=== PATIENT | female | born 1980 | race Caucasian/White ===

== ENCOUNTER 2020-08-17 11:54 | Emergency (ER) | payer OTHER, SELFPAY ==
[2020-08-17] VITALS (8 sets, daily range): BP systolic 103–126; BP diastolic 65–70; PULSE 61–75; RESP 5–18; TEMP 36.8; O2SAT 92–100; BMI 19.7
--- NOTE | 2020-08-17 12:01 | DI.RAD.S_ITS ---
PROCEDURE: XR CHEST 2V INDICATIONS: chest pain TECHNIQUE: 2 views of the chest were acquired. COMPARISON: None. FINDINGS: Surgical changes and devices: None. Lungs and pleura: Subtle pulmonary radiopacities versus nipple shadow is projected over the lower right lung. The lungs are otherwise clear. Mediastinum: Mediastinal contours are normal. Heart size is normal. Bones and chest wall: No suspicious bony abnormalities. Soft tissues appear unremarkable. IMPRESSION: Questionable nipple shadow versus pulmonary radiopacities. Consider lordotic view or view with nipple markers to further clarify this finding. Dictated by: Little Novak M.D. on 08/17/2020 at 13:02 Approved by: Little Novak M.D. on 08/17/2020 at 13:03
[2020-08-17 12:31] LABS: Add Manual Diff / Slide Review NO; Basophils Absolute Auto 100 /uL (0-100); Basophils Percent Auto 0.9 % (0-2); Eosinophils Absolute Auto 100 /uL (0-450); Eosinophils Percent Auto 1.1 % (2-4); Hematocrit 44.7 % (36-46); Hemoglobin 14.7 g/dL (12.0-16.0); Lymphocytes Absolute Auto 2000 /uL (1100-4500); Lymphocytes Percent Auto 29.8 % (25-40); Mean Corpuscular Hemoglobin 29.1 PG (26-34); Mean Corpuscular Volume 88.2 fL (80-100); Monocytes Absolute Auto 500 /uL (0-900); Monocytes Percent Auto 7.2 % (3-14); Neutrophils Absolute Auto 4100 /uL (1500-7000); Platelet Count 222 X10^3/uL (150-400); Red Blood Cell Count 5.06 X10^6/uL (4.0-5.2); Red Cell Distribution Width 12.9 % (11.6-14.8); White Blood Cell Count 6.7 X10^3/uL (4.5-11.0)
[2020-08-17 12:38] LABS: Prothrombin Time 11.6 SECONDS (10.1-12.7)
[2020-08-17 12:41] LABS: Alanine Aminotransferase 28 IU/L (<35); Albumin 5.1 g/dL (3.5-5.0); Albumin Globulin Ratio 1.3 (1.0-2.8); Alkaline Phosphatase 68 U/L (38-126); Aspartate Aminotransferase 28 IU/L (14-36); Bilirubin Total 0.5 mg/dL (0.2-1.3); Blood Urea Nitrogen 20 mg/dL (7-17); Calcium 9.9 mg/dL (8.4-10.2); Carbon Dioxide 29 mmol/L (22-32); Chloride 104 mmol/L (98-107); Creatine Kinase 57 U/L (30-135); Estimated Glomerular Filt Rate > 60.0 mL/min (>60); Globulin 3.8 g/dL (1.7-4.1); Glucose 90 mg/dL (70-100); HEMOLYSIS < 15 (0-50); Lipase 333 U/L (23-300); PTT Partial Thromboplastin Tim 32 SECONDS (26.4-36.2); Potassium 3.8 mmol/L (3.4-5.1); Sodium 142 mmol/L (137-145); Total Protein 8.9 g/dL (6.3-8.2)
[2020-08-17 12:53] LABS: Troponin I < 0.012 ng/mL (0.01-0.034)
[2020-08-17 13:20] LABS: Magnesium 2.1 mg/dL (1.6-2.3)
[2020-08-17 13:29] LABS: NT-proBNP (BNP-Adult 18+) 52 pg/mL (<125)
[2020-08-17 13:33] LABS: D Dimer < 200 ng/mL (<230)
--- NOTE | 2020-08-17 14:14 | DI.RAD.S_ITS ---
PROCEDURE: XR CHEST 2V INDICATIONS: radiopacities vs nipple shadow RLL TECHNIQUE: 2 views of the chest were acquired. COMPARISON: [facility], , XR CHEST 2V, 08/17/2020, 12:14. FINDINGS: Surgical changes and devices: Nipple markers are placed bilaterally.. Lungs and pleura: Lungs are clear. No pleural effusions or pneumothorax. Mediastinum: Mediastinal contours are normal. Heart size is normal. Bones and chest wall: No suspicious bony abnormalities. Soft tissues appear unremarkable. IMPRESSION: No acute cardiopulmonary pathology. Previously noted opacity in right lower lung field represent nipple shadow. Dictated by: Messi Paredes M.D. on 08/17/2020 at 13:30 Approved by: Messi Paredes M.D. on 08/17/2020 at 13:32
--- NOTE | 2020-08-17 14:47 | ED.CHESTPAIN ---
HPI - Chest Pain <JACKIE Ding - Last Filed: 08/17/20 16:30> General Chief Complaint: Chest Pain Stated Complaint: chest pain Time Seen by Provider: 08/17/20 12:52 Source: patient Mode of arrival: Ambulatory Limitations: no limitations History of Present Illness HPI narrative: The patient is a 40-year-old female nonsmoker presents with a chief complaint of right-sided chest pain that started this morning about 10 30 while she was typing at her desk. 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 It is described as squeezing, and has decreased in intensity since this morning. She denies any cardiac history, does not take any daily medications, denies any drug allergies or pertinent surgical procedures. She has not taken anything to feel better. She states that she was nauseous when she woke up this morning, but that is normal for her. She states she had a few seconds of lightheadedness, but that is normal for her. She denies any palpitations, radiation of the pain, current shortness of breath or abdominal pain. She denies any current nausea vomiting diarrhea. Review of Systems <JACKIE Ding - Last Filed: 08/17/20 16:30> Review of Systems Narrative: GENERAL: Denies chills, fatigue, malaise, fever, sweats. HEENT: Denies sinus pain, ear pain, sore throat, difficulty swallowing, dizziness. RESPIRATORY: Denies dyspnea, cough, wheezing, hemoptysis, sputum. CARDIOVASCULAR: See HPI GASTROINTESTINAL: Denies nausea, vomiting, abdominal pain, diarrhea, constipation, melena. : Denies dysuria, frequency, incontinence, hematuria, urinary retention. MUSCULOSKELETAL: denies weakness, joint pain, or bony pain SKIN: Denies rash, skin lesions, or other NEUROLOGIC: Denies weakness, headache, numbness, change in speech, confusion, seizures, incoordination. PSYCHIATRIC: No concerning psychosocial issues. 12 point review of systems is negative except for those stated above Patient History <JACKIE Ding - Last Filed: 08/17/20 16:30> Social History Smoking Status: Never smoker Smoking Status: Never smoker alcohol intake frequency: holidays/special occasions only Substance Use Type: does not use Exam <ELLIS Ding - Last Filed: 12/09/20 16:30> Narrative Exam Narrative: GENERAL: This is a well-nourished, well-developed patient, in no acute distress HEAD: Atraumatic. Normocephalic. No temporal or scalp tenderness. EYES: Pupils equal round and reactive. Extraocular motions intact. No scleral icterus. No injection or drainage. ENT: Nose without bleeding, purulent drainage or septal hematoma. Wearing a mask. Uvula midline. Airway patent. NECK: Trachea midline. No JVD or lymphadenopathy. Supple, nontender, no meningeal signs. CARDIOVASCULAR: Regular rate and rhythm RESPIRATORY: Clear to auscultation. Breath sounds equal bilaterally. No wheezes, rales, or rhonchi. No cough. No increased respiratory effort. No accessory muscle use. GASTROINTESTINAL: Abdomen soft, non-tender, nondistended. No hepato-splenomegaly, or palpable masses. No guarding. Active bowel sounds all 4 quadrants. EXTREMITIES: No clubbing, cyanosis, or edema. No joint tenderness, effusion, or edema noted. BACK: Nontender without deformity or crepitance. No flank tenderness. NEURO: AOx3. SKIN: No rash or erythema on visible skin Initial Vital Signs Initial Vital Signs: Vital Signs Temperature 98.3 F 08/17/20 11:56 Pulse Rate 70 08/17/20 11:56 Respiratory Rate 14 08/17/20 11:56 Blood Pressure 126/70 08/17/20 11:56 Pulse Oximetry 100 08/17/20 11:56 <Aleks Asif DO - Last Filed: 08/17/20 16:35> Initial Vital Signs Initial Vital Signs: Vital Signs Temperature 98.3 F 08/17/20 11:56 Pulse Rate 70 08/17/20 11:56 Respiratory Rate 14 08/17/20 11:56 Blood Pressure 126/70 08/17/20 11:56 Pulse Oximetry 100 08/17/20 11:56 Scores <DURGA Ding- - Last Filed: 08/17/20 16:30> GCS [place] coma scale eye opening: Spontaneous [place] coma scale verbal response: Orientated [place] coma scale motor response: Obey commands [place] coma scale total score: 15 HEART Score Heart Score history: Slightly Suspicious Heart Score EKG: Normal Heart Score Age: < 45 years old Heart Score risk factors: No known risk factors Heart Score troponin: < or = to normal limit Heart Score Total: 0 Course <Shayy CarlDASIAP-BC - Last Filed: 08/17/20 16:30> Orders Ordered: ED Orders 08/17/20 12:01 XR chest 2V Stat EKG-12 Lead Stat 08/17/20 12:23 Complete Blood Count AUTO DIFF Stat Comprehensive Metabolic Panel Stat D Dimer Stat Lipase Stat Magnesium Stat NT-proBNP (BNP-Adult 18+) Stat Partial Thromboplastin Time Stat Prothrombin Time INR Stat Troponin & CK Cardiac Panel Stat 08/17/20 14:14 XR chest 2V Stat 08/17/20 14:44 Troponin & CK Cardiac Panel Stat Vital Signs Vital signs: Vital Signs - 8 hr 08/17/20 11:56 08/17/20 13:00 08/17/20 13:30 Temperature 98.3 F Pulse Rate 70 61 Respiratory Rate 14 18 Blood Pressure 126/70 109/65 104/67 Pulse Oximetry 100 100 08/17/20 14:00 08/17/20 14:40 08/17/20 14:42 Temperature Pulse Rate 67 75 64 Respiratory Rate 12 5 L Blood Pressure 103/67 112/68 Pulse Oximetry 100 92 100 08/17/20 15:00 08/17/20 15:30 Temperature Pulse Rate 66 66 Respiratory Rate 12 Blood Pressure Pulse Oximetry 100 100 <Aleks Asif, - Last Filed: 08/17/20 16:35> Orders Ordered: ED Orders 08/17/20 12:01 XR chest 2V Stat EKG-12 Lead Stat 08/17/20 12:23 Complete Blood Count AUTO DIFF Stat Comprehensive Metabolic Panel Stat D Dimer Stat Lipase Stat Magnesium Stat NT-proBNP (BNP-Adult 18+) Stat Partial Thromboplastin Time Stat Prothrombin Time INR Stat Troponin & CK Cardiac Panel Stat 08/17/20 14:14 XR chest 2V Stat 08/17/20 14:44 Troponin & CK Cardiac Panel Stat Vital Signs Vital signs: Vital Signs - 8 hr 08/17/20 11:56 08/17/20 13:00 08/17/20 13:30 Temperature 98.3 F Pulse Rate 70 61 Respiratory Rate 14 18 Blood Pressure 126/70 109/65 104/67 Pulse Oximetry 100 100 08/17/20 14:00 08/17/20 14:40 08/17/20 14:42 Temperature Pulse Rate 67 75 64 Respiratory Rate 12 5 L Blood Pressure 103/67 112/68 Pulse Oximetry 100 92 100 08/17/20 15:00 08/17/20 15:30 Temperature Pulse Rate 66 66 Respiratory Rate 12 Blood Pressure Pulse Oximetry 100 100 MDM - Chest Pain <DASIA DingP- - Last Filed: 08/17/20 16:30> Lab Data Attestation: I reviewed the patient's lab results. Result diagrams: 08/17/20 12:23 08/17/20 12:23 Labs: Lab Results 08/17/20 08/17/20 08/17/20 Range/Units 12:23 12: 12: WBC 6.7 (4.5-11.0) X10^3/uL RBC 5.06 (4.0-5.2) X10^6/uL Hgb 14.7 (12.0-16.0) g/dL Hct 44.7 (36-46) % MCV 88.2 (80-100) fL MCH 29.1 (26-34) PG MCHC 33.0 (30-36) % RDW 12.9 (11.6-14.8) % Plt Count 222 (150-400) X10^3/uL Neut % (Auto) 61.0 (50-75) % Lymph % (Auto) 29.8 (25-40) % [place] % (Auto) 7.2 (3-14) % Eos % (Auto) 1.1 L (2-4) % Baso % (Auto) 0.9 (0-2) % Neut # (Auto) 4100 (1169-3367) /uL Lymph # (Auto) 2000 (7390-1725) /uL [place] # (Auto) 500 (0-900) /uL Eos # (Auto) 100 (0-450) /uL Baso # (Auto) 100 (0-100) /uL PT 11.6 (10.1-12.7) SECONDS INR 1.0 (0.9-1.3) APTT 32 (26.4-36.2) SECONDS D-Dimer (<230) ng/mL Sodium 142 (137-145) mmol/L Potassium 3.8 (3.4-5.1) mmol/L Chloride 104 (98-107) mmol/L Carbon Dioxide 29 (22-32) mmol/L BUN 20 H (7-17) mg/dL Creatinine 0.77 (0.52-1.04) mg/dL Estimated GFR > 60.0 (>60) mL/min BUN/Creatinine Ratio 26.0 H (6-22) Glucose 90 (70-100) mg/dL Calcium 9.9 (8.4-10.2) mg/dL Magnesium (1.6-2.3) mg/dL Total Bilirubin 0.5 (0.2-1.3) mg/dL AST 28 (14-36) IU/L ALT 28 (<35) IU/L Alkaline Phosphatase 68 (38-126) U/L Total Creatine Kinase 57 (30-135) U/L CK-MB (CK-2) TNP CK-MB (CK-2) Rel Index TNP Troponin I < 0.012 (0.01-0.034) ng/mL NT-Pro-B Natriuret Pep (<125) pg/mL Total Protein 8.9 H (6.3-8.2) g/dL Albumin 5.1 H (3.5-5.0) g/dL Globulin 3.8 (1.7-4.1) g/dL Albumin/Globulin Ratio 1.3 (1.0-2.8) Lipase 333 H (23-300) U/L 08/17/20 08/17/20 08/17/20 Range/Units 12:23 12:23 14:44 WBC (4.5-11.0) X10^3/uL RBC (4.0-5.2) X10^6/uL Hgb (12.0-16.0) g/dL Hct (36-46) % MCV (80-100) fL MCH (26-34) PG MCHC (30-36) % RDW (11.6-14.8) % Plt Count (150-400) X10^3/uL Neut % (Auto) (50-75) % Lymph % (Auto) (25-40) % [place] % (Auto) (3-14) % Eos % (Auto) (2-4) % Baso % (Auto) (0-2) % Neut # (Auto) (5004-3260) /uL Lymph # (Auto) (3066-5623) /uL [place] # (Auto) (0-900) /uL Eos # (Auto) (0-450) /uL Baso # (Auto) (0-100) /uL PT (10.1-12.7) SECONDS INR (0.9-1.3) APTT (26.4-36.2) SECONDS D-Dimer < 200 (<230) ng/mL Sodium (137-145) mmol/L Potassium (3.4-5.1) mmol/L Chloride (98-107) mmol/L Carbon Dioxide (22-32) mmol/L BUN (7-17) mg/dL Creatinine (0.52-1.04) mg/dL Estimated GFR (>60) mL/min BUN/Creatinine Ratio (6-22) Glucose (70-100) mg/dL Calcium (8.4-10.2) mg/dL Magnesium 2.1 (1.6-2.3) mg/dL Total Bilirubin (0.2-1.3) mg/dL AST (14-36) IU/L ALT (<35) IU/L Alkaline Phosphatase (38-126) U/L Total Creatine Kinase 46 (30-135) U/L CK-MB (CK-2) TNP CK-MB (CK-2) Rel Index TNP Troponin I < 0.012 (0.01-0.034) ng/mL NT-Pro-B Natriuret Pep 52 (<125) pg/mL Total Protein (6.3-8.2) g/dL Albumin (3.5-5.0) g/dL Globulin (1.7-4.1) g/dL Albumin/Globulin Ratio (1.0-2.8) Lipase (23-300) U/L Point of Care Testing Test Results Negative Urine Dip Bedside Urine Glucose Negative Bedside Urine Bilirubin - Negative Bedside Urine Ketone - Negative Urine Specific [place] 1.020 Bedside Urine Occult Blood - Negative Bedside Urine pH 6.0 Bedside Urine Protein - Negative Bedside Urine Urobilinogen - Negative Bedside Urine Nitrite - Negative Bedside Urine Leukocytes - Negative Esterase Imaging Data CT scan - chest: Radiologist's Impression: [address] [place] [id number] ReportSigned Patient: Jammie Marroquin#: [id number]: 1980Acct:[id number]/Sex: 40 / FDate of Service: 08/17/20Loc: EDAccession Number: [id number] Procedure: XR chest 2V Ordering Provider: Aleks Asif D.O. PROCEDURE: XR CHEST 2V INDICATIONS: chest pain TECHNIQUE: 2 views of the chest were acquired. COMPARISON: None. FINDINGS: Surgical changes and devices: None. Lungs and pleura: Subtle pulmonary radiopacities versus nipple shadow is projected over the lower right lung. The lungs are otherwise clear. Mediastinum: Mediastinal contours are normal. Heart size is normal. Bones and chest wall: No suspicious bony abnormalities. Soft tissues appear unremarkable. IMPRESSION: Questionable nipple shadow versus pulmonary radiopacities. Consider lordotic view or view with nipple markers to further clarify this finding. Dictated by: Little Novak M.D. on 08/17/2020 at 13:02 Approved by: Little Novak M.D. on 08/17/2020 at 13:[address] [place] [id number] ReportSigned Patient: Jammie MarroquinMR#: [id number]: 1980Acct:[id number]/Sex: 40 / FDate of Service: 08/17/20Lo: EDAccession Number: [id number] Procedure: XR chest 2V Ordering Provider: Shayy Carl TABLET TESTER-BC PROCEDURE: XR CHEST 2V INDICATIONS: radiopacities vs nipple shadow RLL TECHNIQUE: 2 views of the chest were acquired. COMPARISON: [facility], XR CHEST 2V, 08/17/2020, 12:14. FINDINGS: Surgical changes and devices: Nipple markers are placed bilaterally.. Lungs and pleura: Lungs are clear. No pleural effusions or pneumothorax. Mediastinum: Mediastinal contours are normal. Heart size is normal. Bones and chest wall: No suspicious bony abnormalities. Soft tissues appear unremarkable. IMPRESSION: No acute cardiopulmonary pathology. Previously noted opacity in right lower lung field represent nipple shadow. Dictated by: Messi Paredes M.D. on 08/17/2020 at 13:30 Approved by: Messi Paredes M.D. on 08/17/2020 at 13:32 ECG Data Attestation: I personally reviewed and interpreted this ECG as follows: Interpretation: Sinus bradycardia. Ventricular rate 58. P.r. interval 142. QRS 94. Viewed by Dr. Asif MDM Narrative Medical decision making narrative: The patient is a 40-year-old female who presents with a chief complaint of right-sided chest pain that started this morning approximately 10 30. Her chest pain has pretty much resolved upon arrival to the emergency department. Her EKG shows no acute findings. Her initial troponin is negative, as is her repeat troponin. The patient's GCS 15 in her heart score is 0. She also has a negative D-dimer, negative BNP and appears hemodynamically stable and comfortable throughout her stay in the emergency department. I encouraged her to follow up with primary care provider in the next few days. Offered to try anti-inflammatories etcetera but she states she is Willing to do that at home. Discussed coming back to the ER for acute concerns such as chest pain, shortness of breath, concern of heart attack or stroke. Patient has no questions or concerns upon discharge and states understanding return precautions as well as follow-up care. <Aleks Asif, DO - Last Filed: 08/17/20 16:35> Lab Data Labs: Lab Results 08/17/20 08/17/20 08/17/20 Range/Units 12:23 12:23 12:23 WBC 6.7 (4.5-11.0) X10^3/uL RBC 5.06 (4.0-5.2) X10^6/uL Hgb 14.7 (12.0-16.0) g/dL Hct 44.7 (36-46) % MCV 88.2 (80-100) fL MCH 29.1 (26-34) PG MCHC 33.0 (30-36) % RDW 12.9 (11.6-14.8) % Plt Count 222 (150-400) X10^3/uL Neut % (Auto) 61.0 (50-75) % Lymph % (Auto) 29.8 (25-40) % [place] % (Auto) 7.2 (3-14) % Eos % (Auto) 1.1 L (2-4) % Baso % (Auto) 0.9 (0-2) % Neut # (Auto) 4100 (8658-1038) /uL Lymph # (Auto) 2000 (6386-1098) /uL [place] # (Auto) 500 (0-900) /uL Eos # (Auto) 100 (0-450) /uL Baso # (Auto) 100 (0-100) /uL PT 11.6 (10.1-12.7) SECONDS INR 1.0 (0.9-1.3) APTT 32 (26.4-36.2) SECONDS D-Dimer (<230) ng/mL Sodium 142 (137-145) mmol/L Potassium 3.8 (3.4-5.1) mmol/L Chloride 104 (98-107) mmol/L Carbon Dioxide 29 (22-32) mmol/L BUN 20 H (7-17) mg/dL Creatinine 0.77 (0.52-1.04) mg/dL Estimated GFR > 60.0 (>60) mL/min BUN/Creatinine Ratio 26.0 H (6-22) Glucose 90 (70-100) mg/dL Calcium 9.9 (8.4-10.2) mg/dL Magnesium (1.6-2.3) mg/dL Total Bilirubin 0.5 (0.2-1.3) mg/dL AST 28 (14-36) IU/L ALT 28 (<35) IU/L Alkaline Phosphatase 68 (38-126) U/L Total Creatine Kinase 57 (30-135) U/L CK-MB (CK-2) TNP CK-MB (CK-2) Rel Index TNP Troponin I < 0.012 (0.01-0.034) ng/mL NT-Pro-B Natriuret Pep (<125) pg/mL Total Protein 8.9 H (6.3-8.2) g/dL Albumin 5.1 H (3.5-5.0) g/dL Globulin 3.8 (1.7-4.1) g/dL Albumin/Globulin Ratio 1.3 (1.0-2.8) Lipase 333 H (23-300) U/L 08/17/20 08/17/20 08/17/20 Range/Units 12:23 12:23 14:44 WBC (4.5-11.0) X10^3/uL RBC (4.0-5.2) X10^6/uL Hgb (12.0-16.0) g/dL Hct (36-46) % MCV (80-100) fL MCH (26-34) PG MCHC (30-36) % RDW (11.6-14.8) % Plt Count (150-400) X10^3/uL Neut % (Auto) (50-75) % Lymph % (Auto) (25-40) % [place] % (Auto) (3-14) % Eos % (Auto) (2-4) % Baso % (Auto) (0-2) % Neut # (Auto) (2186-2396) /uL Lymph # (Auto) (6556-5920) /uL [place] # (Auto) (0-900) /uL Eos # (Auto) (0-450) /uL Baso # (Auto) (0-100) /uL PT (10.1-12.7) SECONDS INR (0.9-1.3) APTT (26.4-36.2) SECONDS D-Dimer < 200 (<230) ng/mL Sodium (137-145) mmol/L Potassium (3.4-5.1) mmol/L Chloride (98-107) mmol/L Carbon Dioxide (22-32) mmol/L BUN (7-17) mg/dL Creatinine (0.52-1.04) mg/dL Estimated GFR (>60) mL/min BUN/Creatinine Ratio (6-22) Glucose (70-100) mg/dL Calcium (8.4-10.2) mg/dL Magnesium 2.1 (1.6-2.3) mg/dL Total Bilirubin (0.2-1.3) mg/dL AST (14-36) IU/L ALT (<35) IU/L Alkaline Phosphatase (38-126) U/L Total Creatine Kinase 46 (30-135) U/L CK-MB (CK-2) TNP CK-MB (CK-2) Rel Index TNP Troponin I < 0.012 (0.01-0.034) ng/mL NT-Pro-B Natriuret Pep 52 (<125) pg/mL Total Protein (6.3-8.2) g/dL Albumin (3.5-5.0) g/dL Globulin (1.7-4.1) g/dL Albumin/Globulin Ratio (1.0-2.8) Lipase (23-300) U/L Point of Care Testing Test Results Negative Urine Dip Bedside Urine Glucose Negative Bedside Urine Bilirubin - Negative Bedside Urine Ketone - Negative Urine Specific [place] 1.020 Bedside Urine Occult Blood - Negative Bedside Urine pH 6.0 Bedside Urine Protein - Negative Bedside Urine Urobilinogen - Negative Bedside Urine Nitrite - Negative Bedside Urine Leukocytes - Negative Esterase Discharge Plan Departure Patient Disposition: Home Clinical Impression: Atypical chest pain Instructions: DI for Atypical Chest Pain Activity Restrictions/Additional Instructions: Thank you for trusting us with your care today. Today it appears that your pain is not related to your heart today. As discussed, your lab work came back well, as did your repeat lab work. Your chest x-ray had no acute findings. Your EKG looks good today. Please follow-up with primary care provider. I have given you contact information to the [facility] natural resource economist, who can help you identify a PCP. Please come back to the emergency department for any acute concerns such as chest pain, shortness of breath, concern of heart attack or stroke Referrals: [facility] [Outside] <Aleks Asif, DO - Last Filed: 08/17/20 16:35> Cosign ED Attending Cosbrittnyature Attestation: Dr Asif Co-Sign Statement: I was available for consultation during this patient's emergency department visit. This chart is signed by myself for administrative purposes only. I did not have direct contact with this patient during this visit. They were seen independently by the APC.
[2020-08-17 15:13] LABS: Creatine Kinase 46 U/L (30-135)
[2020-08-17 15:26] LABS: Troponin I < 0.012 ng/mL (0.01-0.034)
== END 2020-08-17 16:39 | disposition home or self-care (01) ==
PROVIDERS: Emergency Medicine; Emergency Provider Nurse Practitioner Family
DX: R07.89 Other chest pain (principal)
CPT/HCPCS: 36415; 71046; 80053; 81003; 81025; 82550; 83690; 83735; 83880; 84484; 85025; 85379; 85610; 85730; 93005; 93010; 99283; 99284

== ENCOUNTER → 2020-12-15 09:31 | Outpatient (CLI) | payer OTHER, SELFPAY ==
[2020-12-15] MEDS: COVID-19 VACC, Ad26(JANSSEN)/PF 0.5 ML IM (09:36)
== END ==
PROVIDERS: Visit Provider Internal Medicine
DX: Z23 Encounter for immunization (principal)
CPT/HCPCS: 0031A; 91303

== ENCOUNTER → 2023-02-26 11:56 | Outpatient (CLI) | payer OTHER, SELFPAY ==
[2023-02-26 13:38] LABS: Add Manual Diff / Slide Review NO; Basophils Absolute Auto 100 /uL (0-100); Basophils Percent Auto 0.5 % (0-2); Eosinophils Absolute Auto 0 /uL (0-450); Eosinophils Percent Auto 0.2 % (2-4); Hematocrit 38.6 % (36-46); Hemoglobin 13.1 g/dL (12.0-16.0); Lymphocytes Absolute Auto 1700 /uL (1100-4500); Lymphocytes Percent Auto 14.7 % (25-40); Mean Corpuscular HGB Conc 33.9 % (30-36); Mean Corpuscular Hemoglobin 29.4 PG (26-34); Mean Corpuscular Volume 86.8 fL (80-100); Monocytes Absolute Auto 700 /uL (0-900); Monocytes Percent Auto 5.6 % (3-14); Neutrophils Absolute Auto 9300 /uL (1500-7000); Platelet Count 207 X10^3/uL (150-400); Red Blood Cell Count 4.45 X10^6/uL (4.0-5.2); Red Cell Distribution Width 12.8 % (11.6-14.8); White Blood Cell Count 11.8 X10^3/uL (4.5-11.0)
[2023-02-26 14:27] LABS: Free T4, Direct Thyroxine 1.09 ng/dL (0.78-2.19)
[2023-02-26 14:41] LABS: Thyroid Stimulating Hormone 2.47 uIU/mL (0.47-4.68)
[2023-02-27 11:16] LABS: Varicella IgG Antibody 918 index (Immune >165)
[2023-02-27 17:54] LABS: HIV 1 & 2 Ab/Ag 4th Gen Combo NEGATIVE (NEGATIVE); Hep C Virus Ab w/Reflex Quant NEGATIVE s/c (NEGATIVE); Hepatitis B Surface Antigen NEGATIVE s/c (NEGATIVE)
[2023-04-02 13:23] LABS: RPR Screen REACTIVE
== END ==
PROVIDERS: Referring Provider Obstetrics & Gynecology; Visit Provider Obstetrics & Gynecology
DX: Z34.81 Encounter for supervision of other normal pregnancy, first trimester (principal); Z86.39 Personal history of other endocrine, nutritional and metabolic disease
CPT/HCPCS: 36415; 80055; 84439; 84443; 84481; 86787; 86803; 86850; 86900; 86901; 87086; 87389

== ENCOUNTER → 2023-03-18 08:35 | Outpatient (CLI) | payer OTHER, SELFPAY ==
[2023-03-18 09:00] LABS: Specimen Label NATERA
== END ==
PROVIDERS: Referring Provider Specialist; Visit Provider Specialist
DX: O09.521 Supervision of elderly multigravida, first trimester (principal); Z36.0 Encounter for antenatal screening for chromosomal anomalies
CPT/HCPCS: 36415

== ENCOUNTER → 2023-05-15 08:59 | Outpatient (CLI) | payer OTHER, SELFPAY ==
[2023-05-17 19:09] LABS: AFP Value 47.7 ng/mL (.); Gest Age on Col Date 16.3 weeks (.); Insulin Dep Diabetes No (.); OSBR Risk 1IN 5926 (.); Results Report (.); Test Results *Screen Negative* (.)
== END ==
PROVIDERS: Referring Provider Specialist; Visit Provider Specialist
DX: Z34.82 Encounter for supervision of other normal pregnancy, second trimester (principal); Z3A.18 18 weeks gestation of pregnancy
CPT/HCPCS: 36415; 82105

== ENCOUNTER → 2023-05-23 06:48 | Outpatient (CLI) | payer OTHER, SELFPAY ==
--- NOTE | 2023-05-23 06:50 | DI.US.S_ITS ---
PROCEDURE: US OB >= 14 WEEKS FETUS INDICATIONS: 20 week anatomy scan OUTSIDE/PRIOR DATING DATA: Last menstrual period (LMP): 01/08/2023 LMP-based estimated date of delivery (OLIVIER): 10/15/2023. First dating scan (date and location): 03/18/2023 Estimated date of delivery (OLIVIER) from first dating scan: 10/10/2023. The calculations are made using the clinical OLIVIER of 10/15/2023. TECHNIQUE: Real-time scanning was performed of the fetus, with image documentation and biometric measurements. Endovaginal scanning: Not performed COMPARISON: [facility], , OB <= 14 WEEKS FETUS, 03/18/2023, 8:21. FINDINGS: General: A single living intrauterine gestation is present. Presentation: Vertex. Placenta: Placental position is left fundal , without previa. Amniotic fluid index: 16 cm, normal range is 5-24 cm. Single deepest vertical pocket is 4.8 cm. heart rate: 140 beats per minute. Maternal cervical canal: 5.0 cm long. Normal lower limit is 2.5 cm. biometrics: Biparietal diameter: 4.6 cm, 19 weeks and 6 days Head circumference: 17.5 cm, 20 weeks and 0 days Abdominal circumference: 15.0 cm, 20 weeks and 2 days Femur length: 3.2 cm, 19 weeks and 6 days Clinically estimated gestational age: 19 weeks and 2 days Composite gestational age from present scan: 20 weeks and 0 days Estimated weight and percentile: 350 g, 87th percentile Anatomic survey: Neuro: Ventricles are non-dilated at less than 10 mm. Cisterna magna is normal at 3-11 mm. Cerebellum is normal in size and morphology. Nuchal skin fold: Normal at less than 6 mm between 14-21 weeks gestational age. Face: Nose and lips, facial profile are normal. Spine: No evidence for spina bifida. Heart: 4-chambered heart is present, with normal ventricular outflow tracts. Diaphragm: Diaphragm is intact. Stomach: Left-sided stomach is present. Kidneys: No hydronephrosis. Normal is less than 5 mm in 2nd trimester, less than 7 mm in 3rd trimester. Cord: 3-vessel cord has orthotopic insertion. Bladder: Normal in size. Extremities: All 4 extremities identified. IMPRESSION: 1. Single live intrauterine dating 20 weeks and 0 days. 2. Normal anatomic survey. We strive to produce accurate, complete, and clear reports of imaging services. To assist us in improving patient care, this report was composed using standard report templates and voice recognition software. Therefore, it may contain abnormal punctuation, insertions and/or omissions. Occasional wrong-word or sound-alike substitutions may occur. Though we review the report and make efforts to correct it, we do recommend that the report be read carefully in proper context to recognize any text inaccuracies. Dictated by: Kishore Nascimento M.D. on 05/23/2023 at 10:45 Approved by: Kishore Nascimento M.D. on 05/23/2023 at 10:48
== END ==
PROVIDERS: Referring Provider Specialist; Visit Provider Specialist
DX: Z34.82 Encounter for supervision of other normal pregnancy, second trimester (principal); Z3A.20 20 weeks gestation of pregnancy
CPT/HCPCS: 76811

== ENCOUNTER → 2023-07-10 07:05 | Outpatient (CLI) | payer OTHER, SELFPAY ==
[2023-07-10 09:55] LABS: Hematocrit 29.3 % (36-46); Hemoglobin 10.1 g/dL (12.0-16.0)
[2023-07-10 11:22] LABS: GTT (PREG) 1 Hour PP 50gm Dose 81 mg/dL (76-139)
[2023-07-10 11:54] LABS: Thyroid Stimulating Hormone 1.89 uIU/mL (0.47-4.68)
== END ==
PROVIDERS: Referring Provider Student in an Organized Health Care Education/Training Program; Visit Provider Student in an Organized Health Care Education/Training Program
DX: Z34.82 Encounter for supervision of other normal pregnancy, second trimester (principal); Z3A.26 26 weeks gestation of pregnancy; O99.280 Endocrine, nutritional and metabolic diseases complicating pregnancy, unspecified trimester; E03.9 Hypothyroidism, unspecified
CPT/HCPCS: 36415; 82950; 84443; 85014; 85018; 86850

== ENCOUNTER → 2023-09-11 16:29 | Outpatient (CLI) | payer OTHER, SELFPAY ==
[2023-09-11 17:18] LABS: Hematocrit 33.1 % (36-46); Hemoglobin 11.1 g/dL (12.0-16.0)
== END ==
PROVIDERS: Referring Provider Student in an Organized Health Care Education/Training Program; Visit Provider Student in an Organized Health Care Education/Training Program
DX: O99.019 Anemia complicating pregnancy, unspecified trimester (principal)
CPT/HCPCS: 36415; 85014; 85018

== ENCOUNTER 2023-09-18 09:08 | Outpatient (CLI) | payer OTHER, SELFPAY ==
--- NOTE | 2023-09-18 10:06 | P.TNLD_ITS ---
Visit Information Visit Information Date of evaluation: 09/18/23 Reason for Evaluation: Yes non-stress test Vital Signs Vital Signs: reviewed in OBIX, within normal [facility] Medical History (Updated 09/18/23 @ 09:10 by Elvia Martino DO) Migraines (~2009) Chicken pox (~1982) Depression (~2002) Ankle fracture Hypothyroid in , antepartum Surgical History (Updated 03/13/23 @ 20:27 by Tigist Foss) Anesthesia [place] teeth extracted (~2001) Family History (Updated 03/13/23 @ 20:29 by Tigist Foss) Grandmother Cancer Grandfather Benign brain tumor Social History marital status: number of children: 3 household members: spouse and children lives independently: Yes caregiver/support person: Yes housing: house pets and animals: Yes education level: master's degree ([employer]) occupational status: employed (works from home) current occupational exposures/hazards: No special corey needs: No travel history: recent (domestic only, going to [facility] soon) seatbelt use: always helmet use: Yes water heater temp set < 120 deg: Yes working smoke detector in home: Yes fire extinguisher in home: Yes carbon monox detector in home: Yes firearms in home: No do you feel safe at home: Yes Smoking Status: Never smoker second hand exposure: No alcohol intake: former (rarely when not ) substance use type: does not use during the past year weight has: remained stable well-balanced diet: daily or most days daily servings fruits/ve-4 caffeine: Yes Type(s) of exercise: none Evaluation Evaluation Baseline heart rate: 140 Variability: Moderate (11-25) monitor accelerations: Present Monitor Decelerations: Absent Contraction Frequency (minutes): 5 Uterine Contraction Intensity: Mild Category of Tracing: Reactive Diagnosis, Plan/Disposition Final Diagnosis (1) Advanced maternal age (AMA), 40 years or greater: Status: Acute Plan/Disposition Plan: -f/u next week as scheduled in clinic OB Disposition: home
== END 2023-09-18 09:45 | disposition home or self-care (01) ==
LOC: OB 09-19 16:22
PROVIDERS: Referring Provider Student in an Organized Health Care Education/Training Program; Visit Provider Student in an Organized Health Care Education/Training Program
DX: O09.523 Supervision of elderly multigravida, third trimester (principal); Z3A.36 36 weeks gestation of pregnancy; Z34.90 Encounter for supervision of normal pregnancy, unspecified, unspecified trimester
CPT/HCPCS: 59025; 87653; G0378; G0379

== ENCOUNTER → 2023-09-18 09:49 | Outpatient (CLI) | payer OTHER, SELFPAY ==
[2023-09-19 15:05] LABS: Strep Grp B PCR NEG for Grp B Strep
== END ==
PROVIDERS: Visit Provider Student in an Organized Health Care Education/Training Program
DX: Z34.90 Encounter for supervision of normal pregnancy, unspecified, unspecified trimester (principal); Z3A.36 36 weeks gestation of pregnancy
CPT/HCPCS: 87653

== ENCOUNTER 2023-10-02 08:39 | Outpatient (CLI) | payer OTHER, SELFPAY ==
--- NOTE | 2023-10-02 09:14 | PC.NURSE ---
Pt to unit for scheduled NST. Reports normal movement; denies any new complaints. Feels occasional [place] Pratt and notes that they have been going on for several weeks. VSS, NST reactive and reassuring. Dr. Martino notified at 0905. Okay to discharge. Pt to return to unit Saturday am for scheduled induction.
--- NOTE | 2023-10-02 13:17 | P.TNLD_ITS ---
Visit Information Visit Information Date of evaluation: 10/02/23 Reason for Evaluation: Yes non-stress test ON LICENSE OF [facility] Medical History (Updated 09/18/23 @ 09:10 by Elvia Martino DO) Migraines (~2009) Chicken pox (~1982) Depression (~2002) Ankle fracture Hypothyroid in , antepartum Surgical History (Updated 03/13/23 @ 20:27 by Tigist Foss) Anesthesia [place] teeth extracted (~2001) Family History (Updated 03/13/23 @ 20:29 by Tigist Foss) Grandmother Cancer Grandfather Benign brain tumor Social History marital status: number of children: 3 household members: spouse and children lives independently: Yes caregiver/support person: Yes housing: house pets and animals: Yes education level: master's degree ([employer]) occupational status: employed (works from home) current occupational exposures/hazards: No special corey needs: No travel history: recent (domestic only, going to [facility] soon) seatbelt use: always helmet use: Yes water heater temp set < 120 deg: Yes working smoke detector in home: Yes fire extinguisher in home: Yes carbon monox detector in home: Yes firearms in home: No do you feel safe at home: Yes Smoking Status: Never smoker second hand exposure: No alcohol intake: former (rarely when not ) substance use type: does not use during the past year weight has: remained stable well-balanced diet: daily or most days daily servings fruits/ve-4 caffeine: Yes Type(s) of exercise: none Evaluation Evaluation Baseline heart rate: 130 Variability: Moderate (11-25) monitor accelerations: Present Monitor Decelerations: Absent Contraction Frequency (minutes): 8 Uterine Contraction Intensity: Mild Category of Tracing: Reactive Diagnosis, Plan/Disposition Plan/Disposition Plan: Follow-up in clinic as scheduled OB Disposition: home
== END 2023-10-02 09:08 | disposition home or self-care (01) ==
LOC: OB 10-04 10:27
PROVIDERS: Referring Provider Student in an Organized Health Care Education/Training Program; Visit Provider Student in an Organized Health Care Education/Training Program
DX: O09.523 Supervision of elderly multigravida, third trimester (principal); O47.1 False labor at or after 37 completed weeks of gestation; Z3A.38 38 weeks gestation of pregnancy
CPT/HCPCS: 59025; G0378; G0379

== ENCOUNTER 2023-10-04 07:03 | Inpatient (IN) | payer OTHER, SELFPAY ==
--- NOTE | 2023-10-04 07:55 | P.HPOB_ITS ---
OB HPI Date/Time Date of admission: 10/04/23 Date Patient Seen: 10/04/23 Time Patient Seen: 07:45 History of Present Condition Chief complaint: INDUCTION : 5 Para: 3 Estimated Date of Delivery: 10/10/23 Estimated Gestational Age (weeks): 39+1 Narrative: Jammie Marroquin is a 43 year old female Comments: Admitted for induction of labor due to AMA. She reports feeling well, denies regular painful contractions, leaking fluid, vaginal bleeding, decreased movement. Indications Indication for induction OB: medical complication History of Present care: good care Dating criteria: LMP confirmed by 1st trimester US Ultrasounds: normal mid trimester US Narrative: Rh neg, no PP Rhogam received after last baby (all children are Rh pos) 1st trimester antibody screen negative--> [ x] rhogam at 28wks Hypothyroidism in last , normal thyroid labs 1st trimester--> [ x] repeat TSH with 28wk labs (normal) Positive RPR , negative treponema Wilber Assigned to Dr. Salena DANGELO--> Normal female on Tana; [x ] weekly NSTs at 36wks; [x ] consider 39wk IOL--> scheduled for 10/04/23 Size>dates at 23wks (EFW 87%ile at anatomy)--> normal at 27wks, continue to monitor Anemia--> H/H 10.1/29.3; start PO iron supplementation; [ x] repeat CBC at 34- 36wks (11.1/33.1) Preadmission Labs Blood type: A (-) negative -: Antibody screen: negative, Cystic fibrosis screen: unknown, GBS status: negative, HBsAG: negative, HIV: negative, HSV 1: unknown, HSV 2: unknown and RPR/VDLR: negative -: Chlamydia screen: not detected and Gonorrhea screen: not detected -: Rubella: immune and Varicella: immune HCT: 33.1 HCAB: negative PAP: Normal Cell-free DNA: low risk XX 1 hr GTT: 81 Evaluation Evaluation Baseline heart rate: 140 Variability: Moderate (11-25) monitor accelerations: Present Monitor Decelerations: Absent Contraction Frequency (minutes): 9 Uterine Contraction Intensity: Mild Status: Category l Comments: 1/L/H this week in the office [facility] Medical History (Updated 09/18/23 @ 09:10 by Elvia Martino DO) Migraines (~2009) Chicken pox (~1982) Depression (~2002) Ankle fracture Hypothyroid in , antepartum Surgical History Anesthesia [place] teeth extracted (~2001) Family History Grandmother Cancer Grandfather Benign brain tumor Social History marital status: number of children: 3 household members: spouse and children lives independently: Yes caregiver/support person: Yes housing: house pets and animals: Yes education level: master's degree ([employer]) occupational status: employed (works from home) current occupational exposures/hazards: No special corey needs: No travel history: recent (domestic only, going to [facility] soon) seatbelt use: always helmet use: Yes water heater temp set < 120 deg: Yes working smoke detector in home: Yes fire extinguisher in home: Yes carbon monox detector in home: Yes firearms in home: No do you feel safe at home: Yes Smoking Status: Never smoker second hand exposure: No alcohol intake: former (rarely when not ) substance use type: does not use during the past year weight has: remained stable well-balanced diet: daily or most days daily servings fruits/ve-4 caffeine: Yes Type(s) of exercise: none Meds Home Medications and Allergies Home Medications Medication Instructions Recorded Confirmed Type prenat.vits,vidal,[id number] 1 tab PO DAILY 02/26/23 10/04/23 History ondansetron 4 mg disintegrating 4 mg PO Q6-8H PRN nausea and 04/15/23 10/04/23 Rx tablet vomiting #20 tabs Allergies Allergy/AdvReac Type Severity Reaction Status Date / Time No Known Drug Allergies Allergy Verified 10/04/23 08:00 Review of Systems Review of Systems ROS: Yes All systems reviewed with the patient and are negative except as otherwise documented OB Exam Vital signs Blood Pressure: 112/63 Pulse Rate: 86 Temperature: 97.3 F HENMT Head: normal to inspection Resp Effort & Inspection: normal respiratory effort and able to speak in complete sentences Cardio Rate: regular rate Rhythm: regular rhythm Extremities Lower extremity: Yes normal to inspection GI Other: gravid, nontender, nondistended Other: SVE 10/02/: 1/long/high, soft Assessment and Plan Assessment and Plan Assessment and Plan narrative: 43yo at 39+1wks admitted for induction of labor. Her PNC is c/b AMA, hypothyroidism, anemia, and Rh negative status. Plan to start induction with Cytotec, as her cervix was 1/L/H (soft) in clinic the other day. -CBC, T&S on admission -continuous EFM -epidural PRN -GBS neg, ppx not indicated -PPH risk low -VTE risk low, SCDs with epidural -anticipate L&D Counseling: Common procedures and interventions related to the management of were explained to the patient, including assistance at vaginal delivery with episiotomy, vacuum, or forceps, use of medications to stop premature labor or induce labor, and assessment including auscultation (listening to the heart), use of electronic monitoring (external and / or internal), and use of scalp electrode and/or intrauterine pressure catheter.? It was also explained that approximately 20-30% of mothers have a need for delivery during their labor course. It was explained to the patient that , labor and delivery are ordinarily normal physiological events and can be expected to provide a healthy outcome for mother and baby in the majority of cases. However, there are complications that may arise during , labor, and delivery, such as: hemorrhage requiring administration of blood and/or blood products, surgical intervention, possibly even hysterectomy for life-saving purposes; possibility of infection requiring antibiotics, prolonged hospital stay, and rarely surgical intervention; possibility of blood clots;? possibility of retained products of conception requiring surgical intervention;? possibility of serious tears or injury to the vagina, cervix, perineum, or rectum;? possibility of injury to abdominal structures if delivery is required;? and rarely maternal or may occur. Time Spent with Patient Total time spent with greater than 50% in coordination of care (as documented) at patient's floor/unit and/or counseling patient:: 15-24 minutes
[2023-10-04 07:57] VITALS: BP 112/63; PULSE 86; TEMP 36.3
[2023-10-04 08:00] VITALS: BP 112/63
[2023-10-04] MEDS: miSOPROStoL 25 MCG TABLET PO (08:19)
[2023-10-04 08:23] LABS: Add Manual Diff / Slide Review NO; Basophils Absolute Auto 200 /uL (0-100); Basophils Percent Auto 1.9 % (0-2); Eosinophils Absolute Auto 0 /uL (0-450); Eosinophils Percent Auto 0.3 % (2-4); Hematocrit 31.7 % (36-46); Hemoglobin 10.8 g/dL (12.0-16.0); Lymphocytes Absolute Auto 1200 /uL (1100-4500); Lymphocytes Percent Auto 13.5 % (25-40); Mean Corpuscular HGB Conc 34.1 % (30-36); Mean Corpuscular Hemoglobin 29.3 PG (26-34); Monocytes Absolute Auto 800 /uL (0-900); Monocytes Percent Auto 8.4 % (3-14); Neutrophils Absolute Auto 6900 /uL (1500-7000); Neutrophils Percent Auto 75.9 % (50-75); Platelet Count 181 X10^3/uL (150-400); Red Blood Cell Count 3.68 X10^6/uL (4.0-5.2); Red Cell Distribution Width 14.6 % (11.6-14.8); White Blood Cell Count 9.1 X10^3/uL (4.5-11.0)
[2023-10-04] MEDS: OXYTOCIN PREMIX 30 UNIT/500 ML PLAST..BAG IV (13:44)
[2023-10-04] MEDS: LACTATED RINGERS 1,000 ML 100 ML IV (13:44)
[2023-10-04] MEDS: miSOPROStoL 25 MCG TABLET VAG (17:26)
--- NOTE | 2023-10-04 17:35 | PM.OBPNLAB ---
Date/Time Date Patient Seen: 10/04/23 Time Patient Seen: 17:35 Pain Control Pain control: tolerating well Pelvic Exam Dilation (cm): 2 Effacement (%): 25 station: -3 Amniotic membrane status: Intact Contractions Contractions on admission: none Monitor mode: External Pitocin rate (mU/min): 8 Contraction pattern: Regular Contraction intensity: Mild Status status: Category l Heart Rate Baseline: 130 Monitor Accelerations: Present Monitor Decelerations: Absent Monitor Variability: Moderate Assessment and Plan Assessment: induction ongoing Comments: 43yo at 39+1wks admitted for IOL. Per nursing report, pt's cervix was thin earlier, thus we started pitocin. On my exam now, pt's cervix is still thick, with not much change from her exam 2 days ago. Attempted gonzalez bulb placement, but unable to place given posterior cervical position. -will stop pitocin, and administer another dose of cytotec; plan for cytotec 25mcg q4hrs x 3 -anticipate
[2023-10-04] MEDS: miSOPROStoL 25 MCG TABLET 50 MCG PO (21:30)
--- NOTE | 2023-10-05 04:22 | PM.AN.REGBLK ---
[facility] <Jesse Siddiqi MD - Last Filed: 10/05/23 07:11> Pre-procedure Procedure: Continuous Lumbar Epidural for L&D Attending OB provider: Elvia Martino PMH/ROS narrative: 43yo expectant female , 39w2d, healthy patient. PSH/Anesthesia history narrative: History of epidural, no PSH ASA Class: II Labs: Hct 31.7 % (36-46) L 10/04/23 08:15 Plt Count 181 X10^3/uL (150-400) 10/04/23 08:15 Medications: Current Medications Generic Name Dose Route Start Last Admin Trade Name Freq PRN Reason Stop Dose Admin Carboprost Tromethamine 250 mcg 10/04/23 07:32 Carboprost 250 Mcg/Ml Ampul IM Q90M PRN Bleeding Diphenhydramine HCl 25 mg 10/05/23 04:16 Diphenhydramine 50 Mg/Ml Vial IV Q10M PRN Pruritis Ephedrine Sulfate 5 mg 10/05/23 04:16 Ephedrine 50 Mg/Ml Vial IV Q5M PRN Blood pressure decrease more than 20% of baseline. Oxytocin/Lactated Ringer's 30 unit in 500 mls @ 200 mls/hr 10/04/23 07:32 Oxytocin Premix IV CONT PRN Bleeding Protocol Tranexamic Acid 1,000 mg/ 100 mls @ 200 mls/hr 10/04/23 07:32 Sodium Chloride IV NOW PRN Bleeding Oxytocin/Lactated Ringer's 30 unit in 500 mls @ 2 mls/hr 10/04/23 07:45 10/04/23 13:44 Oxytocin Premix IV 2 milliunit/min TITRATE FRAN 2 mls/hr Administration Protocol 2 MILLIUNIT/MIN Lactated Ringer's 1,000 mls @ 100 mls/hr 10/04/23 07:45 10/04/23 13:44 Lactated Ringers IV 100 mls/hr CONT FRAN Administration FENT 2MCG/ML BUPIV 0.125% EPI 200 mcg in 100 mls @ 5 mls/hr 10/05/23 04:30 Fentanyl/Bupiv/Ns 2mcg/Ml - 0.125% EPIDURAL CONT FRAN Lidocaine HCl 20 ml 10/04/23 07:32 Lidocaine 1% 20 Ml INJ INTRA-OP PRN Post Delivery Methylergonovine Maleate 0.2 mg 10/04/23 07:32 Methylergonovine 0.2 Mg/Ml Vial IM NOW PRN Bleeding Misoprostol 800 mcg 10/04/23 07:32 Misoprostol 200 Mcg Tablet NV NOW PRN Bleeding Misoprostol 50 mcg 10/04/23 20:00 10/04/23 21:30 Misoprostol 25 Mcg Tablet PO 50 mcg Q4H FRAN Administration Nalbuphine HCl 2.5 mg 10/05/23 04:16 Nalbuphine 20 Mg/Ml Ampul IV Q10M PRN Pruritis Naloxone HCl 0.2 mg 10/04/23 07:32 Naloxone 0.4 Mg/Ml Vial IV Q2MIN PRN Opiate Reversal Ondansetron HCl 4 mg 10/04/23 07:34 Ondansetron 4 Mg/2 Ml Inj IV Q4HR PRN Nausea And Vomiting Oxytocin 10 unit 10/04/23 07:32 Oxytocin 10 Unit/Ml Vial IM NOW PRN Bleeding Allergies: Allergies Allergy/AdvReac Type Severity Reaction Status Date / Time No Known Drug Allergies Allergy Verified 10/04/23 08:00 Procedure Insertion date: 10/05/23 Insertion time: 03:42 Prep/Local: betadine x3 and 1% lidocaine Interspace: L3-L4 Patient position: sitting Needle: 18 gauge Hustead Loss of resistance with: saline (+Air) ANN at (cm): 6 Catheter placed at SKIN (cm): 14 Catheter in SPACE (cm): 8 Insertion: No CSF, No Blood, No Paresthesia with insertion, No Paresthesia with injection and No Test dose reaction Initial Medications TEST DOSE time: 03:43 BOLUS DOSE time: 03:45 BOLUS DOSE (mL): 5 BOLUS DOSE med: other (2% Lidocaine) Infusion INFUSION: 0.125% bupivacaine and with fentanyl 2 mcg/mL Initial rate (mL/hr): 5 Subsequent interventions: Initial rate 5ml/hr, PCEA 3ml, lockout 15min, 1hr limit-17ml. 0710: Patient resting comfortably, able to move legs but no pain. No demand doses requested or delivered. Vital signs stable. Post-procedure Anesthesia date START: 10/05/23 Anesthesia time START: 03:18 <Leonor Christie DO - Last Filed: 10/05/23 13:37> Infusion Subsequent interventions: Initial rate 5ml/hr, PCEA 3ml, lockout 15min, 1hr limit-17ml. 0710: Patient resting comfortably, able to move legs but no pain. No demand doses requested or delivered. Vital signs stable. 10/05/23 10:15 - Called for increased labor pain. Increased rate to 10 ml/hr, PCEA 5 ml, 1-hr limit 20 ml. Gave clinician bolus of 6 ml. RN notified that epidural bag is nearing empty. Discussed with pt that I will reassess her after next OR case. KR 13:20 - Pt did well after bolus and increase in rate. Baby girl born 12:38. MARISOL Post-procedure Anesthesia date END: 10/05/23 Anesthesia time END: 12:38 Post-procedure Anesthesia Assessment: Yes CV function: HR/BP stable, Yes Resp function: RR/sat/airway adequate, Yes Post-op hydration adequate, Yes Pain control adequate, Yes Nausea & vomiting absent, Yes Temperature > 36 C, Yes Mental status appropriate and No Anesthesia complications
[2023-10-05] MEDS: OXYTOCIN PREMIX 30 UNIT/500 ML PLAST..BAG IV (07:37)
--- NOTE | 2023-10-05 07:58 | PM.OBPNLAB ---
Date/Time Date Patient Seen: 10/05/23 Time Patient Seen: 08:00 Pain Control Pain control: epidural Pelvic Exam Dilation (cm): 5 Effacement (%): 60 station: -2 Amniotic membrane status: Ruptured Comments: SROM'd at 0650 Contractions Contractions on admission: regular Monitor mode: External Pitocin rate (mU/min): 2 Contraction pattern: Irregular Status status: Category l Heart Rate Baseline: 125 Monitor Accelerations: Present Monitor Decelerations: Absent Monitor Variability: Moderate Assessment and Plan Assessment: induction ongoing Plan: continuous present management Comments: 43-year-old at 39+ 2 weeks undergoing induction of labor. Overnight she received her epidural, and her water broke this morning at 6:50 a.m. Last cervical exam per nursing was /-2. -continue to titrate Pitocin for effect -anticipate
[2023-10-05] MEDS: FENT 2MCG/ML BUPIV 0.125% EPI 200 MCG/100 ML PLAST..BAG 5 MCG EPIDURAL (10:57)
[2023-10-05] MEDS: LACTATED RINGERS 1,000 ML 100 ML IV (10:58)
[2023-10-05] MEDS: ONDANSETRON 4 MG/2 ML INJ IV (11:05)
[2023-10-05] MEDS: METHYLERGONOVINE 0.2 MG/ML VIAL IM (12:45)
[2023-10-05] MEDS: miSOPROStoL 200 MCG TABLET 1000 MCG PR (12:50)
--- NOTE | 2023-10-05 12:58 | PM.OBPRVD ---
Events: Labor Induction (Advanced maternal age) Labor & Delivery Delivery date: 10/05/23 Intrapartal Events: None Cervical ripening method: per misoprostal protocol Induction method: per pitocin protocol Delivery monitor: external FHT Route of delivery: L&D Laceration Description: None Estimated blood loss (mL): 400 Anesthesia Type: Epidural Narrative: The patient progressed to C/C/+1 with pitocin augmentation and epidural anesthesia. After approximately 3 sets of maternal pushing efforts, the infant delivered in OA position and restituted ROT. The anterior shoulder delivered with gentle downward pressure, and the posterior shoulder and rest of body delivered with ease. The cord was doubly clamped and cut after a 60sec delay with the infant placed on maternal abdomen. The placenta delivered spontaneously and was intact with a 3-vessel cord. The fundus was noted to be firm with bimanual massage and pitocin, however the lower uterine segment was boggy. She received a dose of methergine, and 1000mcg cytotec FL, with improvement in her bleeding. Inspection of the cervix, vagina, and perineum was notable for no lacerations. All sponges were removed from the vagina, and instrument/lap counts were correct after delivery. The patient tolerated delivery well and remained in the labor room with the infant at the bedside. Baby 1: Infant gender: Female score (1 min): 9 score (5 min): 9 weight: 7 lb 1.194 oz (3209g) Plan for aftercare: Routine care
[2023-10-06] MEDS: IBUPROFEN 600 MG TABLET PO (02:40)
--- NOTE | 2023-10-06 09:35 | PM.OBDS.1 ---
Discharge Providers Provider Date of admission: 10/04/23 07:03 Discharge Date: 10/06/23 Primary care physician: Doctor Juan MD Consults: 10/04/23 07:32 Consult to Anesthesiology Urgent Comment: Consulting Provider: Anesthesiologist Reason for consultation: Epidural 10/06/23 12:56 Consult to Training And Development Head Routine Comment: Discharge provider: Elvia Martino DO Summary Hospital Course Date Patient Seen: 10/06/23 Time Patient Seen: 09:35 Diagnoses: Term gestation at 39+1wks Advanced maternal age Anemia of Rh negative status Hospital Course: Hospital course: 43yo [id number] admitted at 39+1wks for induction of labor due to advanced maternal age. Her delivery was uncomplicated, and productive of a viable female with APGARs 9/9, weighing 3209g. Her course was unremarkable. On day #1, she was ambulating, tolerating regular diet, voiding spontaneously with minimal lochia. Her pain was well controlled with oral medications, thus she was discharged to home on day #1. Peripartum Data Infant Delivery Method: Natural Vaginal Laceration Description: None Procedures: External monitoring Induction of labor Epidural anesthesia Spontaneous vaginal delivery complications: none Discharge Diagnosis (1) Advanced maternal age (AMA), 40 years or greater: Status: Acute (2) Anemia affecting : Status: Acute (3) Rh negative state in antepartum period: Status: Acute Problem Details: Did not receive PP Rhogam after last child Status at Discharge Cognitive/behavioral status at discharge: oriented Functional status at discharge: independent ambulation Overall status at discharge: patient is back to baseline Time Spent with Patient Time attestation: Total time spent providing and/or coordinating discharge services: Time spent: Less than 30 minutes Objective Labs 10/04/23 08:15 Exam Vital Signs (past 8 hours): vitals reviewed in OBIX, within normal parameters Const General: cooperative, healthy appearing, comfortable and No acute distress Resp Effort & Inspection: normal respiratory effort GI Inspection: normal to inspection Other: fundus firm and nontender at U-2 Skin General: no rashes or lesions noted Neuro General: patient alert and patient awake Extrem General: normal to inspection, no pedal edema and no calf tenderness Psych Mood: congruent mood Affect: normal affect Discharge Plan Discharge Plan Patient Disposition: Home Provider Discharge Comment: Take ibuprofen 600 mg every 6 hours or acetaminophen 650 mg every 6 hours as needed for pain. Avoid placing anything in the vagina for 6 weeks. Resume normal activities as tolerated. Discharge orders & Medications Prescriptions: Continued prenat.vits,vidal,[id number] Tablet 1 tab PO DAILY Discontinued ondansetron 4 mg tablet,disintegrating 4 mg PO Q6-8H PRN (Reason: nausea and vomiting) Qty: 20 2RF Follow up/Referrals: Doctor Martinez MD [Primary Care Provider] - Elvia Martino DO [Physician] - Diet/Activity/Treatments Diet: Diet as Tolerated Skin/Wound/Dressing Care Report to your healthcare provider any signs of infection, such as:: chills, fever, increased pain, unusual drainage and unusual redness Visit Report/Discharge Packet Instructions: DI for Labor and Delivery, Vaginal Stand Alone Forms: Patient Portal/API, Stroke Signs & Symptoms Discharge Data Primary Care Provider: Doctor Juan
[2023-10-06] MEDS: RHO(D) IMMUNE GLOBULIN 1,500 UNIT SYRINGE 1500 UNIT IM (10:50)
[2023-10-06 11:28] VITALS: BP 115/65; PULSE 70; RESP 15; TEMP 37.1
== END 2023-10-06 11:00 | disposition home or self-care (01) | DRG 806 ==
PROVIDERS: Admitting Provider Student in an Organized Health Care Education/Training Program; Referring Provider Student in an Organized Health Care Education/Training Program; Visit Provider Student in an Organized Health Care Education/Training Program
DX: O99.02 Anemia complicating childbirth (principal); O47.1 False labor at or after 37 completed weeks of gestation; Z37.0 Single live birth; D64.9 Anemia, unspecified; O99.284 Endocrine, nutritional and metabolic diseases complicating childbirth; E03.9 Hypothyroidism, unspecified; Z3A.39 39 weeks gestation of pregnancy; Z67.11 Type A blood, Rh negative; O09.523 Supervision of elderly multigravida, third trimester; Z3A.38 38 weeks gestation of pregnancy
CPT/HCPCS: 36415; 59025; 59050; 59200; 59400; 85025; 85461; 86850; 86870; 86900; 86901; G0379; J2210; J2405; J2590; J2790; S0191

== ENCOUNTER → 2025-05-28 08:24 | Outpatient (CLI) | payer OTHER, SELFPAY | LOC: LAB 08:26 | PROVIDERS: Visit Provider Nurse Practitioner Family | DX: R30.0 Dysuria (principal) | CPT/HCPCS: 87077; 87086; 87186 ==